=== PATIENT | male | born 1955 | race Caucasian/White ===

== ENCOUNTER → 2018-05-04 | Outpatient (CLI) | payer BC | LOC: COL.RAD 14:43 | DX: M41.86 Other forms of scoliosis, lumbar region (principal); M47.817 Spondylosis without myelopathy or radiculopathy, lumbosacral region ==

== ENCOUNTER → 2020-01-26 | Outpatient (CLI) | payer BC | LOC: COL.RAD 10:39 | DX: Z01.812 Encounter for preprocedural laboratory examination (principal); R07.9 Chest pain, unspecified | CPT/HCPCS: Q9967 ==

== ENCOUNTER 2020-03-16 08:12 | Day surgery (SDC) | payer BC ==
[~2020-03-16] VITALS: Ht 177.8 cm; Wt 86.5 kg
[2020-03-16] VITALS (10 sets, daily range): BP systolic 100–130; BP diastolic 67–86; PULSE 54–74; TEMP 98.2
[2020-03-16] MEDS ORDERED: PRAVACHOL 40MG40 MG PO (08:42)
[2020-03-16] MEDS ORDERED: STOOL SOFTENER100 M2 PO (08:42)
[2020-03-16] MEDS ORDERED: ASPIRIN 81M81 MG/TA2 PO (08:43)
[2020-03-16] MEDS ORDERED: GLUCOSAMINE/CHO1 CA4 PO (08:44)
[2020-03-16] MEDS ORDERED: FISH OIL 1000MG1 CAP PO (08:44)
[2020-03-16] MEDS ORDERED: FLOMAX 0.40.4 MG/CAP PO (08:45)
[2020-03-16] MEDS ORDERED: ONE-A-DAY ESSE1 EACH PO (08:45)
[2020-03-16] MEDS ORDERED: ALEVE 220MG220 MG PO (08:46)
[2020-03-16] MEDS ORDERED: TYLENOL 500MG500 MG PO (08:46)
[2020-03-16 09:08] LABS: HEMATOCRIT 45.8 % (42.0-52.0); HEMOGLOBIN 15.2 g/dl (13.5-18.0); MEAN CELL VOLUME 96 fl (80.0-100.0); MEAN CORPUSCULAR HEMOGLOBIN 32 pg (27.0-31.0); MEAN CORPUSCULAR HGB CONC 33 g/dl (33.0-37.0); MEAN PLATELET VOLUME 9.5 fl (7.4-10.4); PLATELET COUNT 147 K/mm3 (130-400); RED BLOOD COUNT 4.78 M/mm3 (4.20-5.60); REDCELL DISTRIBUTION WIDTH-CV 12.1 % (11.5-14.5)
[2020-03-16 09:17] LABS: ALBUMIN 4.1 gm/dL (3.5-5.0); BILIRUBIN,TOTAL 0.6 mg/dL (0.0-1.0); CREATININE, serum 0.88 (0.66-1.25); MAGNESIUM 2.2 mg/dL (1.6-2.3); POTASSIUM 4.1 mmol/L (3.4-5.0); PROTHROMBIN TIME 11.4 SECONDS (9.7-12.8)
--- NOTE | 2020-03-16 11:00 | NUR ---
SEE MERGE DOCUMENTATION FOR MEDICATION ADMINISTRATION AND INTRA/POST PROCEDURE SEDATION ASSESSMENTS.
--- NOTE | 2020-03-16 13:05 | NUR ---
5ml removed from TR band by BRIONNA Mullins from [employer] as pt called out with c/o new onset of numbness in fingers. Expresses relief with loosening of TR band. Scant blood noted under TR band following this, will continue to monitor closely. Area remains soft to palpation.
--- NOTE | 2020-03-16 14:43 | NUR ---
Rt radial puncture site dressed with 2x2 and bandaid. Arm board sent with pt. IV DC'd with catheter intact and bleeding controlled at site. Pt expresses understanding of DC instructions. He is assisted out by wheelchair to 's car.
== END 2020-03-16 14:44 | disposition home or self-care (01) ==
LOC: COL.CAR 08:12
PROVIDERS: Internal Medicine Cardiovascular Disease
DX: I25.10 Atherosclerotic heart disease of native coronary artery without angina pectoris (principal); I10 Essential (primary) hypertension; E78.5 Hyperlipidemia, unspecified; J30.2 Other seasonal allergic rhinitis; Z79.82 Long term (current) use of aspirin; Z79.51 Long term (current) use of inhaled steroids; R94.39 Abnormal result of other cardiovascular function study
CPT/HCPCS: J1644; J2250; J3010; Q9967